=== PATIENT | female | born 2005 | race Caucasian/White ===

== ENCOUNTER 2023-10-02 11:56 | Emergency (ER) | payer OTHER, BC, SELFPAY ==
[2023-10-02 12:07] VITALS: BP 124/80; PULSE 83; RESP 17; TEMP 36.6; O2SAT 98; BMI 23.1
--- NOTE | 2023-10-02 12:12 | ED_ITS ---
HPI - General Adult General Chief complaint: Nausea/Vomiting/Diarrhea Stated complaint: Vomiting blood Time Seen by Provider: 10/02/23 16:34 Source: patient, RN notes reviewed and old records reviewed Mode of arrival: ambulatory Limitations: no limitations History of Present Illness HPI narrative: [age]-year old female presents for evaluation vomiting. Patient reports that she has been fatigued, and ?sick for most the semester for the last 2-3 months She states that she was vomiting last night after having a couple of alcoholic drinks She noticed a few streaks of bright red blood in the vomitus She denies any significant abdominal pain Patient went to her [facility] medical provider and was tested for mono on , 3 days ago. She does not have this result yet Patient does state somebody that she is in contact with did test positive for mono The patient denies any medical history or surgical history Denies any fevers or chills No other complaints or concerns at this time Related Data Previous Rx's Medication Instructions Recorded ondansetron 4 mg disintegrating 4 mg PO Q8H PRN nausea and 10/02/23 tablet vomiting #20 tabs Allergies Allergy/AdvReac Type Severity Reaction Status Date / Time No Known Allergies Allergy Verified 10/02/23 12:04 Review of Systems 2 Constitutional: Constitutional: Denies chills, Denies fever(s) and Denies headache(s) ENT: Denies headache(s) Cardiovascular: Cardiovascular: Denies chest pain and Denies dyspnea Respiratory: Respiratory: Denies cough and Denies dyspnea Gastrointestinal: Gastrointestinal: Reports abdominal pain, Denies melena, Denies hematochezia, Reports nausea, Reports vomiting and Reports other (bright red blood streaks in vomit) Genitourinary: Genitourinary: Denies difficulty voiding Musculoskeletal: Musculoskeletal: Denies back pain Integumentary/Breasts: Skin/Breast: Denies rash Neurologic: Denies headache(s) PMFSH Social History Social History Advance Directives: No Advance Directives Information Provided: No Patient : No Physical Exam ED Vital Signs: Vital Signs - 24 hr 10/02/23 16:00 Temperature 98.3 F Pulse Rate 77 Respiratory Rate 18 Blood Pressure 125/81 Pulse Oximetry 97 Oxygen Delivery Method Room Air BMI result Body Mass Index 23.1 Const General: healthy appearing, comfortable, no acute distress, alert and awake Nutritional Appearance: well nourished Orientation/consciousness: patient oriented x3 HENMT Head: Yes normocephalic and Yes atraumatic Eyes Eyelids: Yes eyelids normal Conjunctivae: conjunctivae normal Sclerae: sclerae normal Corneas: corneas normal Pupils: Equal, round and reactive pupils present EOM: EOMs intact bilaterally Neck Neck: Yes full ROM Resp Effort & Inspection: normal respiratory effort, able to speak in complete sentences and not labored GI Inspection: No distended Palpation (GI): Soft to palpation, not firm, nontender, no guarding, not rigid and no splenomegaly Skin General skin exam: elasticity normal Neuro General: patient oriented x3 Cranial nerves: Yes Equal, round and reactive pupils present and Yes Bilaterally intact EOM present Cognition (Neuro): normal cognition Extrem Other: Moving all extremities well without any obvious deformities Course Course Course Narrative: RME: 18 yold female with pmh of lymphadenitis from [facility] presents to the ED for vomitting blood last night after drinking rounds of alcohol. Patient states no recetal bleeding. patient states last vomitting episode was last night. Labs ordered. NO obvious swelling on visual inspection or palpation. labs ordered. Medications Administered Discontinued Medications Generic Name Dose Route Start Last Admin Trade Name Freq PRN Reason Stop Dose Admin Sodium Chloride 1,000 mls @ 999 mls/hr 10/02/23 17:15 10/02/23 17:40 Ns IV 10/02/23 18:15 Not Given .Q1H1M HAILEY Lidocaine/Diphenhydr/Alum/Mg/Simeth 10 ml 10/02/23 17:28 10/02/23 17:40 Mag&Al/Sim/Diphenhyd/Lidocaine 10 Ml Oral.Susp PO 10/02/23 17:29 10 ml ONCE ONE Administration Protocol Ondansetron HCl 4 mg 10/02/23 17:15 10/02/23 17:41 Ondansetron Hcl 4 Mg/2 Ml Vial IVPUSH 10/02/23 17:16 Not Given ONCE ONE Ondansetron HCl 4 mg 10/02/23 17:28 10/02/23 17:40 Ondansetron Odt 4 Mg Tab.Rapdis TRANSLINGU 10/02/23 17:29 4 mg ONCE ONE Administration Pantoprazole Sodium 40 mg 10/02/23 17:15 10/02/23 17:41 Pantoprazole Sodium 40 Mg/10 Ml Vial IVPUSH 10/02/23 17:16 Not Given ONCE ONE Medical Decision Making Medical Decision Making [facility] Narrative: 18-year-old female who is otherwise healthy presents for evaluation of vomiting as well as feeling unwell for the last couple of months. Patient reports some bright red streaks in her vomitus. She has not vomited in the ER, her vitals are stable, she is not anemic. Her abdomen is nontender palpation. Workup is largely unremarkable. I did not repeat the Monospot testing as she will get the results tomorrow from her PCP, she has no splenomegaly on palpation. Plan for treatment with Zofran, magic mouthwash and GI follow-up as an outpatient Differential Diagnosis Differential Diagnoses: The differential diagnosis associated with the presentation includes Gastroenteritis Peptic ulcer disease Alcoholic gastritis Pancreatitis Biliary colic Lab Data [facility] Lab Attestation statement: I reviewed the patient's lab results. No leukocytosis, no anemia, normal platelet count. No significant electrolyte abnormalities. 10/02/23 12:22 10/02/23 12:22 Labs: Lab Results 10/02/23 Range/Units 12:22 WBC 7.8 (4.8-10.8) X10*3/uL RBC 4.67 (4.20-5.50) X10*6/uL Hgb 12.8 (12.0-16.0) g/dl Hct 39.4 (37.0-47.0) % MCV 84.4 (80.0-98.0) fL MCH 27.4 (27.0-33.0) pg MCHC 32.5 (31.0-35.0) g/dl RDW 15.1 (11.0-16.0) % Plt Count 217 (160-400) X10*3/uL MPV 10.7 (9.4-12.3) fL Immature Gran % (Auto) 0.4 (0.0-0.4) % Neut % (Auto) 58.3 (45-73) % Lymph % (Auto) 32.3 (20-40) % [place] % (Auto) 6.6 (2-11) % Eos % (Auto) 2.0 (0-4) % Baso % (Auto) 0.4 (0-2) % Lymph # (Auto) 2.5 (1.2-4.9) X10*3/uL [place] # (Auto) 0.5 (0.1-1.2) X10*3/uL Eos # (Auto) 0.2 (0.0-0.4) X10*3/uL Baso # (Auto) 0.0 (0.0-0.2) X10*3/uL Abs Immat Gran (auto) 0.03 (0.00-0.03) X10*3/uL Absolute Neuts (auto) 4.6 (2.0-8.3) x10*3/uL Absolute Nucleated RBC 0.000 (0.0-0.012) X10*3/uL Nucleated RBC % (auto) 0.0 (0.0-0.2) /100WBC PT 12.4 (11.1-13.3) SEC INR 1.0 (0.9-1.1) APTT 32.6 (26.0-36.4) SEC Sodium 140 (135-145) mmol/L Potassium 4.0 (3.3-5.1) mmol/L Chloride 107 (96-108) mmol/L Carbon Dioxide 26 (22-29) mmol/L Anion Gap 11 L (12-20) BUN 14 (9-16) mg/dL Creatinine 0.73 (0.5-1.4) mg/dL Estim Creat Clear Calc 123.9 Estimated GFR > 60 Random Glucose 87 (60-115) mg/dL Calcium 9.6 (8.4-10.2) mg/dL Total Bilirubin 0.5 (0.0-1.0) mg/dL AST 17 (5-31) U/L ALT 14 (0-31) U/L Alkaline Phosphatase 61 (39-117) U/L Total Protein 7.4 (6.5-8.0) g/dL Albumin 4.6 (3.5-5.0) g/dL Lipase 13 (8-78) U/L Beta HCG, Quant < 2 mIU/mL Discharge Plan Discharge Clinical Impression: Vomiting Patient Disposition: Home, Self-Care Instructions: Gastroenteritis (ED) Additional Instructions: Your workup in the emergency room today was reassuring Drink lots of fluids. Use Zofran for nausea/vomiting. Avoid excessive alcohol use as well as NSAIDs like ibuprofen, Advil, Aleve Follow-up with GI at the number provided Prescriptions: New ondansetron 4 mg tablet,disintegrating 4 mg PO Q8H PRN (Reason: nausea and vomiting) Qty: 20 0RF Referrals: Peter Mario MD [Physician] - (chronic nausea and vomiting. reported red streaks in vomit) Stand Alone Forms: Work/School Release Interventions: ED Discharge Assessment Last Done: 10/02/23 18:00 Discharge Date/Time: 10/02/23 18:34
[2023-10-02 12:29] LABS: MANUAL DIFF FLAG NO
[2023-10-02 12:31] LABS: Basophils Percent Auto 0.4 % (0-2); Eosinophils Absolute Auto 0.2 X10*3/uL (0.0-0.4); Hematocrit 39.4 % (37.0-47.0); Hemoglobin 12.8 g/dl (12.0-16.0); Imm Gran Abs Auto 0.03 X10*3/uL (0.00-0.03); Imm Gran Pct Auto 0.4 % (0.0-0.4); Lymphocytes Absolute Auto 2.5 X10*3/uL (1.2-4.9); Lymphocytes Percent Auto 32.3 % (20-40); Mean Corpuscular HGB Conc 32.5 g/dl (31.0-35.0); Mean Corpuscular Hemoglobin 27.4 pg (27.0-33.0); Mean Corpuscular Volume 84.4 fL (80.0-98.0); Mean Platelet Volume 10.7 fL (9.4-12.3); Monocytes Absolute Auto 0.5 X10*3/uL (0.1-1.2); Monocytes Percent Auto 6.6 % (2-11); Neutrophils Absolute Auto 4.6 x10*3/uL (2.0-8.3); Neutrophils Percent Auto 58.3 % (45-73); Platelet Count 217 X10*3/uL (160-400); Red Blood Count 4.67 X10*6/uL (4.20-5.50); Red Cell Distribution Width 15.1 % (11.0-16.0); White Blood Count 7.8 X10*3/uL (4.8-10.8)
[2023-10-02 12:37] LABS: Prothrombin Time 12.4 SEC (11.1-13.3)
[2023-10-02 12:40] LABS: Partial Thromboplastin Time 32.6 SEC (26.0-36.4)
[2023-10-02 12:55] LABS: Alanine Aminotransferase 14 U/L (0-31); Albumin Level 4.6 g/dL (3.5-5.0); Alkaline Phosphatase 61 U/L (39-117); Anion Gap 11 (12-20); Aspartate Amino Transferase 17 U/L (5-31); Bilirubin Total 0.5 mg/dL (0.0-1.0); Blood Urea Nitrogen 14 mg/dL (9-16); Calcium 9.6 mg/dL (8.4-10.2); Carbon Dioxide 26 mmol/L (22-29); Chloride 107 mmol/L (96-108); Creatinine Clr Calc Pharmacy 123.9; Estimated Glomerular Filt Rate > 60; Glucose Random 87 mg/dL (60-115); Lipase 13 U/L (8-78); Sodium 140 mmol/L (135-145); Total Protein 7.4 g/dL (6.5-8.0)
[2023-10-02 13:04] LABS: HCG Quantitative < 2 mIU/mL
[2023-10-02 16:00] VITALS: BP 125/81; PULSE 77; RESP 18; TEMP 36.8; O2SAT 97
--- NOTE | 2023-10-02 16:21 | PC.NURSE ---
Pt reports abd pain x1 week, states she went out drinking last night and after about 4 drinks forced herself to vomit, noticed streaks of blood. Reports Headache today. Last bowel movement this am, denies n/v today.skin pwd.
[2023-10-02] MEDS: Ondansetron ODT 4 MG TAB.RAPDIS TRANSLINGU (17:40)
[2023-10-02] MEDS: Mag&Al/Sim/Diphenhyd/Lidocaine 10 ML ORAL.SUSP PO (17:40)
== END 2023-10-02 18:34 | disposition home or self-care (01) ==
PROVIDERS: Physician Assistant; Emergency Provider Internal Medicine
DX: R11.10 Vomiting, unspecified (principal); R10.9 Unspecified abdominal pain
CPT/HCPCS: 36415; 80053; 83690; 84702; 85025; 85610; 85730; 99284